=== PATIENT | male | born 1975 | race Caucasian/White ===

== ENCOUNTER 2016-05-31 14:33 | Emergency (ER) | payer OTHER | END 2016-05-31 16:34 | disposition home or self-care (01) | LOC: ED 14:33 | DX: L03.312 Cellulitis of back [any part except buttock and flank] (principal) ==

== ENCOUNTER 2016-07-13 23:10 | Emergency (ER) | payer OTHER | END 2016-07-14 02:02 | disposition home or self-care (01) | LOC: ED 23:10 | DX: J40 Bronchitis, not specified as acute or chronic (principal) ==